=== PATIENT | male | born 1970 | race Caucasian/White ===

== ENCOUNTER 2019-09-11 15:30 | Inpatient (IN) ==
[2019-09-11] MEDS ORDERED: SODIUM CHLORIDE 0.9% 1000ML 1,000 ML IV ONE ×2 (15:52→17:09)
[2019-09-11] MEDS ORDERED: LORazepam 2 MG/4 ML VIAL IV STA (15:57)
--- NOTE | 2019-09-11 16:08 | Emergency Department Note ---
Impression & Plan SIRS (systemic inflammatory response syndrome), Tachycardia, Hypertension, Acidosis, lactic, Alcohol intoxication ED Provider Note NAME: CHAZ CURTIS AGE: 49 SEX: M ARRIVES VIA: Walk-In INFORMANT: [Patient] ED PROVIDER(S): Robert Vazquez MD CHIEF COMPLAINT: Fever PLAN: Disposition: Admitted Condition: [Good] MEDICAL DECISION MAKING: Patient presented with concerns for fever and abnormal vital signs from rehab. He had essentially no complaints. He did admit to drinking alcohol today. He does have history of detox. No obvious contacts with any known novel coronavirus patients although the patient does work in the [place] area and there is a significant number of active cases there. A rapid monreal test was performed and this was negative. Chest x-ray was unremarkable. The patient did have a mild leukocytosis on CBC. He also had a significant lactic acidosis. The patient was hypertensive and very tachycardic. He was given IV normal saline boluses as well as IV Ativan. He was feeling well on reassessment. Repeat lactate was improving although was still elevated. Because of the lab findings the patient had blood cultures performed and was given IV cefepime empirically. I discussed the need for monitoring and further testing in the hospital. The patient was in agreement. [facility] Patient was evaluated in the ER and admitted for further management. Triage Nursing notes reviewed and agree them. Vital Signs: reviewed and remarkable for hypertension and tachycardia Differential diagnosis: Viral syndrome, alcohol withdrawal, novel coronavirus, otitis, pharyngitis, pneumonia, influenza, meningitis, urinary tract infection, sepsis, bacteremia, as well as other pathologies. ER treatment provided: Saline hydration x2 L IV Ativan 2 mg IV cefepime Diagnostics interpreted by me: ECG: Rate: 117 Rhythm: Sinus tachycardia [place]:Normal QRS:Normal ST segements:No elevation or depression Other:No PACs or PVCs Cardiac Monitoring: Cardiac monitoring ordered by me: The patient was placed on continuous cardiac monitoring and observed. It revealed a sinus tachycardia at 129 beats per minute without ectopy or evidence of dysrhythmia. Laboratory studies: [See below] mild leukocytosis on CBC. Chemistry panel revealed an elevated anion gap and significant lactic acidosis. Significant elevation of blood alcohol level. Imaging studies: Chest x-ray. Findings: A chest x-ray was performed and revealed no pneumothorax, effusion, infiltrate, pulmonary edema, free air under the diaphragm, or wide mediastinum. Impression: No acute disease. [facility] HPI: The patient is a 49 year old male who presents to the Emergency Room with complaints of fever. This started a few hours ago and is now resolved. The pat stephanie was checking into alcohol rehab at [facility] and he states his initial temperature was normal and then a recheck was done. He was found to have an elevated heart rate, high blood pressure, and a fever of 100.2. The patient is from the [facility]. He has no known contact with a novel coronavirus patient. He feels well without any nasal congestion cough, loss of taste or smell, shortness of breath, or other complaints. He took no medication for symptoms. He states his last drink was vodka about 6 hours ago. He normally drinks every evening. He has had withdrawal issues before but typically after 2 days. Patient was given no medication prior to ER arrival. Current pain is rated as 0 out of 10. Pt denies LOC, headache, chills, diaphoresis, visual changes, neck pain, chest pain, breathing difficulties, nausea, vomiting, abdominal pain, back pain, melena, hematochezia, urinary symptoms, numbness, weakness, lymphadenopathy, rash, or other complaints. ROS: See above HPI for pertinent positives & negatives. A total of [10] systems reviewed and were otherwise negative. PAST MEDICAL HISTORY:[See Below] alcohol abuse PAST SURGICAL HISTORY:[See Below] FAMILY HISTORY:[See Below] SOCIAL HISTORY:[See Below] drinks daily. HOME MEDICATIONS:[See Below] ALLERGIES:[See Below] VITALS:[See Below] PHYSICAL EXAMINATION: GENERAL: Awake, alert, well-appearing, in no distress HENT: Normocephalic, atraumatic. Oropharynx unremarkable. EYES: Normal conjunctiva. Sclera non-icteric. NECK: Inspection normal. Non-tender. Supple. No nuchal rigidity. FROM. No masses. RESPIRATORY: Clear to auscultation. No wheezes. No rales. Normal respiratory effort. CARDIAC: Tachycardic rate. Normal rhythm. No murmurs. No rubs. Extremities war m and well perfused. Pulses equal. No JVD. GI: Soft, non-distended. No tenderness to palpation. No rebound or guarding. No masses. RECTAL: Deferred. MUSCULOSKELETAL: Atraumatic. Chest examination reveals no tenderness. The back is symmetrical on inspection without obvious abnormality. There is no CVA tenderness to palpation. No joint edema. LOWER EXTREMITIES: Calves are equal size bilaterally and non-tender. No edema. No discoloration. NEURO: Normal sensorium. No sensory or motor deficits noted. SKIN: No rash or jaundice noted. ED COURSE: [Critical Care:] [None] Robert Vazquez MD Past Med/Surg History Social History Feels Safe at Home: Yes Smoking Status: Current every day smoker Allergies Allergies Allergy/AdvReac Type Severity Reaction Status Date / Time No Known Allergies Allergy Verified 09/11/19 16:51 Home Meds Home Medications Medication Instructions Recorded Confirmed aspirin 81 mg PO DAILY 09/11/19 09/11/19 atorvastatin 20 mg PO HS 09/11/19 09/11/19 carvedilol [Coreg] 12.5 mg PO BID 09/11/19 09/11/19 cyanocobalamin (vitamin B-12) 1,000 mcg PO DAILY 09/11/19 09/11/19 [Vitamin B-12] sacubitril-valsartan [Entresto] 1 tab PO BID 09/11/19 09/11/19 spironolactone 12.5 mg PO QAM 09/11/19 09/11/19 Results & Data (ED) Vital Signs Vital Signs - 24 hr 09/11/19 15:31 09/11/19 15:46 09/11/19 16:22 Temperature 36.7 C 37.3 C Temperature Source Oral Oral Pulse Rate 152 H Pulse Rate [Apical] 119 H Pulse Rate [Finger] 130 H Pulse Rate from SpO2 Sensor Pulse Rhythm [Finger] Pulse Strength [Finger] Respiratory Rate 18 20 21 Respiratory Effort / Characteristics Non-Labored Spontaneous Respiratory Depth Normal Respiratory Pattern Blood Pressure 161/91 H Blood Pressure [Right Arm] 162/101 H 141/89 H Blood Pressure Mean 114 Blood Pressure Mean [Right Arm] 121 106 Blood Pressure Position Sitting Pulse Oximetry 98 97 96 Oxygen Delivery Method Room Air Room Air Room Air Sepsis Recent Fever Within 48 Hours No Sepsis New/Unexplained Change in Mental Status No Sepsis Action Taken by Nursing No Action Required 09/11/19 16:30 09/11/19 16:31 09/11/19 18:05 Temperature Temperature Source Pulse Rate 134 H 123 H Pulse Rate [Apical] Pulse Rate [Finger] 111 H Pulse Rate from SpO2 Sensor 133 H 124 H Pulse Rhythm [Finger] Pulse Strength [Finger] Respiratory Rate 18 18 20 Respiratory Effort / Characteristics Non-Labored Respiratory Depth Normal Respiratory Pattern Regular Blood Pressure 142/106 H Blood Pressure [Right Arm] 157/96 H Blood Pressure Mean 116 Blood Pressure Mean [Right Arm] 116 Blood Pressure Position Pulse Oximetry 98 97 97 Oxygen Delivery Method Room Air Room Air Room Air Sepsis Recent Fever Within 48 Hours Sepsis New/Unexplained Change in Mental Status Sepsis Action Taken by Nursing 09/11/19 19:14 Temperature Temperature Source Pulse Rate Pulse Rate [Apical] Pulse Rate [Finger] 99 H Pulse Rate from SpO2 Sensor Pulse Rhythm [Finger] Regular Pulse Strength [Finger] Normal Respiratory Rate 18 Respiratory Effort / Characteristics Respiratory Depth Respiratory Pattern Blood Pressure Blood Pressure [Right Arm] 153/94 H Blood Pressure Mean Blood Pressure Mean [Right Arm] 113 Blood Pressure Position Pulse Oximetry 96 Oxygen Delivery Method Room Air Sepsis Recent Fever Within 48 Hours Sepsis New/Unexplained Change in Mental Status Sepsis Action Taken by Nursing Laboratory Data Result diagrams: 09/11/19 16:14 09/11/19 16:14 Lab Results 09/11/19 09/11/19 09/11/19 Range/Units 16:14 16:14 16:14 WBC 11.19 H (4.8-10.8) K/uL RBC 4.50 L (4.7-6.1) M/uL Hgb 15.2 (14.0-18.0) g/dL Hct 42.8 (42-52) % MCV 95.1 (80-100) fL MCH 33.8 (25-34) pg MCHC 35.5 (32-36) g/dL RDW Std Deviation 44.1 (36.4-46.3) fL RDW Coeff of Darya 12.8 (11.5-14.5) % Plt Count 325 (130-400) K/uL MPV 9.4 (7.4-10.4) fL Immature Gran % (Auto) 0.6 % Neut % (Auto) 65.0 % Lymph % (Auto) 27.3 % [place] % (Auto) 6.3 % Eos % (Auto) 0.4 % Baso % (Auto) 0.4 % Immature Gran # (Auto) 0.07 H (0.00-0.02) K/uL Neut # (Auto) 7.27 H (1.4-6.5) K/uL Lymph # (Auto) 3.06 (1.2-3.4) K/uL [place] # (Auto) 0.71 H (0.11-0.59) K/uL Eos # (Auto) 0.04 (0-0.5) K/uL Baso # (Auto) 0.04 (0-0.2) K/uL Sodium 136 (136-145) mmol/L Potassium 3.6 (3.5-5.1) mmol/L Chloride 102 (98-107) mmol/L Carbon Dioxide 22 (21-32) mmol/L Anion Gap 12.0 H (3-11) BUN 11 (7-18) mg/dl Creatinine 1.06 (0.6-1.4) mg/dl Est Cr Clr Drug Dosing 102.0 ml/min Est GFR ( Amer) 95.7 Est GFR (Non-Af Amer) 82.6 BUN/Creatinine Ratio 10.7 (10-20) Glucose 110 H (70-99) mg/dl Lactate 4.1 H* (0.4-2.0) mmol/L Calcium 8.9 (8.5-10.1) mg/dl Magnesium 1.9 (1.8-2.4) mg/dl Total Bilirubin 0.4 (0.2-1) mg/dl AST 62 H (15-37) U/L ALT 73 (12-78) U/L Alkaline Phosphatase 108 (45-117) U/L Total Protein 7.8 (6.4-8.2) gm/dl Albumin 3.5 (3.4-5.0) gm/dl Globulin 4.3 H (2.5-4.0) gm/dl Albumin/Globulin Ratio 0.8 L (0.9-2) Urine Color Urine Appearance (Clear) Urine pH (4.5-7.5) Ur Specific [place] (1.000-1.030) Urine Protein (Negative) Urine Glucose (UA) (Negative) Urine Ketones (Negative) Urine Blood (Negative) Urine Nitrite (Negative) Urine Bilirubin (Negative) Urine Urobilinogen (Negative) Ur Leukocyte Esterase (Negative) Urine WBC (Auto) (0-5) /hpf Urine RBC (Auto) (0-4) /hpf U Hyaline Cast (Auto) (0-5) /lpf U Epithel Cells (Auto) (0-5) /lpf Urine Bacteria (Auto) (Negative) Ethyl Alcohol mg/dL (0-3) mg/dl COVID-19 PCR (Negative) 09/11/19 09/11/19 09/11/19 Range/Units 16:14 16:29 18:00 WBC (4.8-10.8) K/uL RBC (4.7-6.1) M/uL Hgb (14.0-18.0) g/dL Hct (42-52) % MCV (80-100) fL MCH (25-34) pg MCHC (32-36) g/dL RDW Std Deviation (36.4-46.3) fL RDW Coeff of Darya (11.5-14.5) % Plt Count (130-400) K/uL MPV (7.4-10.4) fL Immature Gran % (Auto) % Neut % (Auto) % Lymph % (Auto) % [place] % (Auto) % Eos % (Auto) % Baso % (Auto) % Immature Gran # (Auto) (0.00-0.02) K/uL Neut # (Auto) (1.4-6.5) K/uL Lymph # (Auto) (1.2-3.4) K/uL [place] # (Auto) (0.11-0.59) K/uL Eos # (Auto) (0-0.5) K/uL Baso # (Auto) (0-0.2) K/uL Sodium (136-145) mmol/L Potassium (3.5-5.1) mmol/L Chloride (98-107) mmol/L Carbon Dioxide (21-32) mmol/L Anion Gap (3-11) BUN (7-18) mg/dl Creatinine (0.6-1.4) mg/dl Est Cr Clr Drug Dosing ml/min Est GFR ( Amer) Est GFR (Non-Af Amer) BUN/Creatinine Ratio (10-20) Glucose (70-99) mg/dl Lactate (0.4-2.0) mmol/L Calcium (8.5-10.1) mg/dl Magnesium (1.8-2.4) mg/dl Total Bilirubin (0.2-1) mg/dl AST (15-37) U/L ALT (12-78) U/L Alkaline Phosphatase (45-117) U/L Total Protein (6.4-8.2) gm/dl Albumin (3.4-5.0) gm/dl Globulin (2.5-4.0) gm/dl Albumin/Globulin Ratio (0.9-2) Urine Color Yellow Urine Appearance Clear (Clear) Urine pH 5.5 (4.5-7.5) Ur Specific [place] 1.014 (1.000-1.030) Urine Protein Negative (Negative) Urine Glucose (UA) Negative (Negative) Urine Ketones Negative (Negative) Urine Blood Trace H (Negative) Urine Nitrite Negative (Negative) Urine Bilirubin Negative (Negative) Urine Urobilinogen Negative (Negative) Ur Leukocyte Esterase Negative (Negative) Urine WBC (Auto) 1-5 (0-5) /hpf Urine RBC (Auto) 0-4 (0-4) /hpf U Hyaline Cast (Auto) 0 (0-5) /lpf U Epithel Cells (Auto) 0-5 (0-5) /lpf Urine Bacteria (Auto) Negative (Negative) Ethyl Alcohol mg/dL 277.4 H (0-3) mg/dl COVID-19 PCR NEGATIVE (Negative) 09/11/19 Range/Units 18:23 WBC (4.8-10.8) K/uL RBC (4.7-6.1) M/uL Hgb (14.0-18.0) g/dL Hct (42-52) % MCV (80-100) fL MCH (25-34) pg MCHC (32-36) g/dL RDW Std Deviation (36.4-46.3) fL RDW Coeff of Darya (11.5-14.5) % Plt Count (130-400) K/uL MPV (7.4-10.4) fL Immature Gran % (Auto) % Neut % (Auto) % Lymph % (Auto) % [place] % (Auto) % Eos % (Auto) % Baso % (Auto) % Immature Gran # (Auto) (0.00-0.02) K/uL Neut # (Auto) (1.4-6.5) K/uL Lymph # (Auto) (1.2-3.4) K/uL [place] # (Auto) (0.11-0.59) K/uL Eos # (Auto) (0-0.5) K/uL Baso # (Auto) (0-0.2) K/uL Sodium (136-145) mmol/L Potassium (3.5-5.1) mmol/L Chloride (98-107) mmol/L Carbon Dioxide (21-32) mmol/L Anion Gap (3-11) BUN (7-18) mg/dl Creatinine (0.6-1.4) mg/dl Est Cr Clr Drug Dosing ml/min Est GFR ( Amer) Est GFR (Non-Af Amer) BUN/Creatinine Ratio (10-20) Glucose (70-99) mg/dl Lactate 3.6 H* (0.4-2.0) mmol/L Calcium (8.5-10.1) mg/dl Magnesium (1.8-2.4) mg/dl Total Bilirubin (0.2-1) mg/dl AST (15-37) U/L ALT (12-78) U/L Alkaline Phosphatase (45-117) U/L Total Protein (6.4-8.2) gm/dl Albumin (3.4-5.0) gm/dl Globulin (2.5-4.0) gm/dl Albumin/Globulin Ratio (0.9-2) Urine Color Urine Appearance (Clear) Urine pH (4.5-7.5) Ur Specific [place] (1.000-1.030) Urine Protein (Negative) Urine Glucose (UA) (Negative) Urine Ketones (Negative) Urine Blood (Negative) Urine Nitrite (Negative) Urine Bilirubin (Negative) Urine Urobilinogen (Negative) Ur Leukocyte Esterase (Negative) Urine WBC (Auto) (0-5) /hpf Urine RBC (Auto) (0-4) /hpf U Hyaline Cast (Auto) (0-5) /lpf U Epithel Cells (Auto) (0-5) /lpf Urine Bacteria (Auto) (Negative) Ethyl Alcohol mg/dL (0-3) mg/dl COVID-19 PCR (Negative) Administered Medications Discontinued Medications Carvedilol (Coreg) 6.25 mg PO NOW STA Stop: 09/11/19 19:32 Last Admin: 09/11/19 19:39 Dose: 6.25 mg Documented by: [id number] Sodium Chloride (Nss 1000ml) 1,000 mls @ 999 mls/hr IV .Q1H1M ONE Stop: 09/11/19 16:52 Last Infusion: 09/11/19 17:18 Dose: 0 mls/hr Documented by: [id number] Admin: 09/11/19 16:17 Dose: 999 mls/hr Documented by: [id number] Lorazepam (Ativan) 2 mg in 4 mls @ 4 mls/min IV NOW STA Stop: 09/11/19 15:58 Last Admin: 09/11/19 16:17 Dose: 4 mls/min Documented by: [id number] Sodium Chloride (Nss 1000ml) 1,000 mls @ 999 mls/hr IV .Q1H1M ONE Stop: 09/11/19 18:09 Last Infusion: 09/11/19 19:04 Dose: 0 mls/hr Documented by: [id number] Admin: 09/11/19 18:03 Dose: 999 mls/hr Documented by: [id number] Cefepime HCl (Maxipime) 2,000 mg in 20 mls @ 5 mls/min IV NOW STA; Protocol Stop: 09/11/19 18:26 Last Admin: 09/11/19 19:11 Dose: 5 mls/min Documented by: [id number] Discharge Plan Visit Data Chief Complaint: Fever Stated Complaint: FEVER ED Provider: Robert Vazquez Discharge Problem: SIRS (systemic inflammatory response syndrome), Tachycardia, Hypertension, Acidosis, lactic, Alcohol intoxication Forms Stand Alone Forms: My [facility] Prescriptions Prescriptions: No Action atorvastatin 20 mg Tablet 20 mg PO HS RF: 0 carvedilol [Coreg] 12.5 mg Tablet 12.5 mg PO BID RF: 0 cyanocobalamin (vitamin B-12) [Vitamin B-12] 1,000 mcg Tablet 1,000 mcg PO DAILY RF: 0 aspirin 81 mg Tablet,Delayed Release (Dr/Ec) 81 mg PO DAILY RF: 0 spironolactone 25 mg Tablet 12.5 mg PO QAM RF: 0 Entresto 24-26 mg Tablet 1 tab PO BID RF: 0
[2019-09-11 16:26] LABS: Basophils # (auto) 0.04 K/uL (0-0.2); Basophils % (auto) 0.4 %; Eosinophils # (auto) 0.04 K/uL (0-0.5); Eosinophils % (auto) 0.4 %; Hematocrit (blood only) 42.8 % (42-52); Hemoglobin 15.2 g/dL (14.0-18.0); Immature Granulocytes # (auto) 0.07 K/uL (0.00-0.02); Immature Granulocytes % (auto) 0.6 %; Lymphocytes # (auto) 3.06 K/uL (1.2-3.4); Lymphocytes % (auto) 27.3 %; Mean Corpuscular Hemoglobin 33.8 pg (25-34); Mean Corpuscular Hgb Conc 35.5 g/dL (32-36); Mean Corpuscular Volume 95.1 fL (80-100); Mean Platelet Volume 9.4 fL (7.4-10.4); Monocytes # (auto) 0.71 K/uL (0.11-0.59); Monocytes % (auto) 6.3 %; Neutrophils # (auto) 7.27 K/uL (1.4-6.5); Platelet Count 325 K/uL (130-400); RDW Coefficient of Variation 12.8 % (11.5-14.5); RDW Standard Deviation 44.1 fL (36.4-46.3); White Blood Count 11.19 K/uL (4.8-10.8)
[2019-09-11 16:44] LABS: Albumin Level 3.5 gm/dl (3.4-5.0); BUN Creatinine Ratio 10.7 (10-20); Calcium 8.9 mg/dl (8.5-10.1); Est GFR (African American) 95.7; Est GFR (Non-African American) 82.6; Magnesium 1.9 mg/dl (1.8-2.4); Potassium 3.6 mmol/L (3.5-5.1)
[2019-09-11 16:47] LABS: Albumin Globulin Ratio 0.8 (0.9-2); Bilirubin,Total 0.4 mg/dl (0.2-1); Globulin 4.3 gm/dl (2.5-4.0); Total Protein 7.8 gm/dl (6.4-8.2)
--- NOTE | 2019-09-11 18:14 | XRay Report ---
SINGLE VIEW CHEST CLINICAL HISTORY: Fever. FINDINGS: An AP, portable, upright chest radiograph is obtained. No prior studies are available for c omparison at the time of dictation. The examination is degraded by portable technique and patient rot ation. The cardiomediastinal silhouette is unremarkable. There is mild bibasilar atelectasis. No air space consolidation or large pleural effusion is identified. No pneumothorax is seen. The bony thorax is grossly intact. IMPRESSION: No active disease in the chest. ACT 112: Negative or not required by law. Electronically signed by: Arthur Singh M.D. 09/11/2019 6:13 PM
[2019-09-11] MEDS ORDERED: CEFEPIME 2,000 MG/20 ML VIAL IV STA (18:23)
[2019-09-11 18:29] LABS: Appearance Urine Clear (Clear); Bacteria Urine Automated Negative (Negative); Bilirubin Urine Negative (Negative); Blood Urine Trace (Negative); Cast Urine Automated 0 /lpf (0-5); Color Urine Yellow; Epithelial Cell Urine Auto 0-5 /lpf (0-5); Glucose Urine UA Negative (Negative); Ketones Urine Negative (Negative); Leukocyte Esterase Urine Negative (Negative); Nitrite Urine Negative (Negative); Protein Urine Negative (Negative); RBC Urine Automated 0-4 /hpf (0-4); Specific Gravity Urine 1.014 (1.000-1.030); Urobilinogen Urine Negative (Negative); pH Urine 5.5 (4.5-7.5)
[2019-09-11] MEDS ORDERED: carvediloL 6.25 MG TAB PO STA (19:31)
[2019-09-11] MEDS ORDERED: LACTATED RINGER'S 1,000 ML IV ONE (19:32)
[2019-09-11] MEDS ORDERED: GABAPENTIN 600 MG TAB PO STA (19:33)
--- NOTE | 2019-09-11 19:54 | History & Physical Report ---
Date of Service September 11, 2019 Assessment & Plan (1) Alcohol withdrawal: Low-grade fever possibly from alcohol withdrawal No overt source of bacterial infection identified for now. chronic systolic heart failure secondary to nonischemic cardiomyopathy (EF 47%, TTE 2019 as per patient), euvolemic to dry hypertension, slight elevated hyperlipidemia on statin Rx Alcoholic hepatitis ongoing tobacco abuse. Medical telemetry DT precautions Hold antibiotics until definite bacteria; source found. IVF, follow lactic acid Facilitate home beta-jose Nicotine patch PRN DVT prophylaxis per Lovenox subcu Full code Text document was generated using [employer] voice recognition software. It may contain grammatical or spelling errors. Kindly contact undersigned for clarification of any documentation item in question. History of Present Illness Chief Complaint: Fever, tachycardia as per records Primary Care Provider: Linden Peter PA-C History obtained from patient and records. Medical history significant for chronic systolic heart failure secondary to nonischemic cardiomyopathy (EF 47%, TTE 2019 as per patient), hypertension, hyperlipidemia, ongoing alcohol/tobacco abuse. Patient checked himself in today at [facility] for alcohol rehab. Upon arrival at the facility, patient noted to have low-grade fever of 100.2, noted to be tachycardic, cardiac rate 140s. Patient denies chest pain, S OB, cough, abdominal pain, diarrhea, dysuria. Some palpitations noted. At the ER, patient given Cefepime for possible sepsis. Medical History as above Surgical History : None Family History : Unknown as patient is adopted Personal/Social history : Half pack daily, alcohol abuse, railroad work Allergies Allergy/AdvReac Type Severity Reaction Status Date / Time No Known Allergies Allergy Verified 09/11/19 16:51 Home Medications Home Medications Medication Instructions Recorded Confirmed Type aspirin 81 mg PO DAILY 09/11/19 09/11/19 History atorvastatin 20 mg PO HS 09/11/19 09/11/19 History carvedilol [Coreg] 12.5 mg PO BID 09/11/19 09/11/19 History cyanocobalamin (vitamin B-12) 1,000 mcg PO DAILY 09/11/19 09/11/19 History [Vitamin B-12] sacubitril-valsartan [Entresto] 1 tab PO BID 09/11/19 09/11/19 History spironolactone 12.5 mg PO QAM 09/11/19 09/11/19 History Past Med/Surg History Social History Preferred Language: Turkish Communication Ability: Effective 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 Beliefs That Will Affect Care: None Current Living Situation: Alone Feels Safe at Home: Yes Smoking Status: Current every day smoker Tobacco Type: cigarettes ; Cigarettes Per Day: 1 pack ; Hx Alcohol Use: Yes Alcohol type: hard liquor Hx Substance Use: No Review of Systems Review of Systems: As per HPI, all 10 systems reviewed, all other ROS negative Physical Exam Physical Exam: GENERAL: Comfortable, pleasant, obese, no respiratory distress SKIN: Normal color, warm HEENT: [place] palpebral conjunctivae, no ptosis, dry buccal mucosa NECK : Supple, short neck, no tenderness CHEST : Decreased breath sounds, expiratory wheezes that clear on coughing, no tenderness HEART : Tachycardic, no obvious murmurs ABDOMEN: Some distention, nontender EXTREMITIES : No LE swelling/tenderness, no other conspicuous deformities noted NEUROLOGIC : Coherent, no facial asymmetry, no other gross focality Results & Data Results & Data ([facility]) Vital Signs (Past 12 Hours) Vital Signs Temp Pulse Pulse Pulse Resp BP BP 09/11/19 19:14 99 H 18 153/94 H 09/11/19 18:05 111 H 20 157/96 H 09/11/19 16:31 123 H 18 09/11/19 16:30 134 H 18 142/106 H 09/11/19 16:22 119 H 21 141/89 H 09/11/19 15:46 37.3 C 130 H 20 162/101 H 09/11/19 15:31 36.7 C 152 H 18 161/91 H Pulse Ox 09/11/19 19:14 96 09/11/19 18:05 97 09/11/19 16:31 97 09/11/19 16:30 98 09/11/19 16:22 96 09/11/19 15:46 97 09/11/19 15:31 98 Laboratory Results Laboratory Results WBC 11.19 K/uL (4.8-10.8) H 09/11/19 16:14 RBC 4.50 M/uL (4.7-6.1) L 09/11/19 16:14 Hgb 15.2 g/dL (14.0-18.0) 09/11/19 16:14 Hct 42.8 % (42-52) 09/11/19 16:14 MCV 95.1 fL (80-100) 09/11/19 16:14 MCH 33.8 pg (25-34) 09/11/19 16:14 MCHC 35.5 g/dL (32-36) 09/11/19 16:14 RDW Std Deviation 44.1 fL (36.4-46.3) 09/11/19 16:14 RDW Coeff of Darya 12.8 % (11.5-14.5) 09/11/19 16:14 Plt Count 325 K/uL (130-400) 09/11/19 16:14 MPV 9.4 fL (7.4-10.4) 09/11/19 16:14 Immature Gran % (Auto) 0.6 % 09/11/19 16:14 Neut % (Auto) 65.0 % 09/11/19 16:14 Lymph % (Auto) 27.3 % 09/11/19 16:14 [place] % (Auto) 6.3 % 09/11/19 16:14 Eos % (Auto) 0.4 % 09/11/19 16:14 Baso % (Auto) 0.4 % 09/11/19 16:14 Immature Gran # (Auto) 0.07 K/uL (0.00-0.02) H 09/11/19 16:14 Neut # (Auto) 7.27 K/uL (1.4-6.5) H 09/11/19 16:14 Lymph # (Auto) 3.06 K/uL (1.2-3.4) 09/11/19 16:14 [place] # (Auto) 0.71 K/uL (0.11-0.59) H 09/11/19 16:14 Eos # (Auto) 0.04 K/uL (0-0.5) 09/11/19 16:14 Baso # (Auto) 0.04 K/uL (0-0.2) 09/11/19 16:14 Sodium 136 mmol/L (136-145) 09/11/19 16:14 Potassium 3.6 mmol/L (3.5-5.1) 09/11/19 16:14 Chloride 102 mmol/L (98-107) 09/11/19 16:14 Carbon Dioxide 22 mmol/L (21-32) 09/11/19 16:14 Anion Gap 12.0 (3-11) H 09/11/19 16:14 BUN 11 mg/dl (7-18) 09/11/19 16:14 Creatinine 1.06 mg/dl (0.6-1.4) 09/11/19 16:14 Est Cr Clr Drug Dosing 102.0 ml/min 09/11/19 16:14 Est GFR ( Amer) 95.7 09/11/19 16:14 Est GFR (Non-Af Amer) 82.6 09/11/19 16:14 BUN/Creatinine Ratio 10.7 (10-20) 09/11/19 16:14 Glucose 110 mg/dl (70-99) H 09/11/19 16:14 Lactate 3.6 mmol/L (0.4-2.0) H* 09/11/19 18:23 Calcium 8.9 mg/dl (8.5-10.1) 09/11/19 16:14 Magnesium 1.9 mg/dl (1.8-2.4) 09/11/19 16:14 Total Bilirubin 0.4 mg/dl (0.2-1) 09/11/19 16:14 AST 62 U/L (15-37) H 09/11/19 16:14 ALT 73 U/L (12-78) 09/11/19 16:14 Alkaline Phosphatase 108 U/L (45-117) 09/11/19 16:14 Total Protein 7.8 gm/dl (6.4-8.2) 09/11/19 16:14 Albumin 3.5 gm/dl (3.4-5.0) 09/11/19 16:14 Globulin 4.3 gm/dl (2.5-4.0) H 09/11/19 16:14 Albumin/Globulin Ratio 0.8 (0.9-2) L 09/11/19 16:14 Urine Color Yellow 09/11/19 18:00 Urine Appearance Clear (Clear) 09/11/19 18:00 Urine pH 5.5 (4.5-7.5) 09/11/19 18:00 Ur Specific [place] 1.014 (1.000-1.030) 09/11/19 18:00 Urine Protein Negative (Negative) 09/11/19 18:00 Urine Glucose (UA) Negative (Negative) 09/11/19 18:00 Urine Ketones Negative (Negative) 09/11/19 18:00 Urine Blood Trace (Negative) H 09/11/19 18:00 Urine Nitrite Negative (Negative) 09/11/19 18:00 Urine Bilirubin Negative (Negative) 09/11/19 18:00 Urine Urobilinogen Negative (Negative) 09/11/19 18:00 Ur Leukocyte Esterase Negative (Negative) 09/11/19 18:00 Urine WBC (Auto) 1-5 /hpf (0-5) 09/11/19 18:00 Urine RBC (Auto) 0-4 /hpf (0-4) 09/11/19 18:00 U Hyaline Cast (Auto) 0 /lpf (0-5) 09/11/19 18:00 U Epithel Cells (Auto) 0-5 /lpf (0-5) 09/11/19 18:00 Urine Bacteria (Auto) Negative (Negative) 09/11/19 18:00 Ethyl Alcohol mg/dL 277.4 mg/dl (0-3) H 09/11/19 16:14 COVID-19 PCR NEGATIVE (Negative) 09/11/19 16:29 Diagnostic Findings Chest x-ray : No active disease in the chest. EKG as per my interpretation : Rate 120, sinus tachycardia, normal axis, no ischemia, LAE
[2019-09-11] MEDS ORDERED: ACETAMINOPHEN 325 MG TAB PO PRN (23:12)
[2019-09-11] MEDS ORDERED: LORazepam 3 MG/6 ML VIAL IV PRN (23:12)
[2019-09-11] MEDS ORDERED: ATIVAN IV ALCOHOL WITHDRAWL IV PRN (23:12)
[2019-09-11] MEDS ORDERED: GABAPENTIN 1200MG ALCOHOL WITHDRAWAL LOAD PO STA (23:12)
[2019-09-11] MEDS ORDERED: LORazepam 0.5 MG TAB PO PRN (23:12)
[2019-09-11] MEDS ORDERED: PROMETHAZINE HCL 12.5 MG in SODIUM CHLORIDE 0.9% 50 ML IV PRN (23:12)
[2019-09-11] MEDS ORDERED: LORazepam 2 MG/4 ML VIAL IV PRN (23:12)
[2019-09-11 23:27] LABS: INR 1.1 (0.9-1.1); Prothrombin Time 11.4 Seconds (9.0-12.0)
[2019-09-11] MEDS ORDERED: THIAMINE HCL 100 MG in SYRINGE 9 ML IV STA (23:27)
[2019-09-11] MEDS ORDERED: MAGNESIUM SULFATE / D5W 1 GM/100 ML BAG IV ONE (23:30)
[2019-09-12] MEDS: GABAPENTIN 600 MG TAB PO SCH ×4 (01:02→23:16)
[2019-09-12 05:45] LABS: Basophils # (auto) 0.03 K/uL (0-0.2); Basophils % (auto) 0.3 %; Eosinophils # (auto) 0.08 K/uL (0-0.5); Eosinophils % (auto) 0.8 %; Hematocrit (blood only) 38.6 % (42-52); Hemoglobin 13.4 g/dL (14.0-18.0); Immature Granulocytes # (auto) 0.02 K/uL (0.00-0.02); Immature Granulocytes % (auto) 0.2 %; Lymphocytes # (auto) 2.06 K/uL (1.2-3.4); Lymphocytes % (auto) 21.7 %; Mean Corpuscular Hgb Conc 34.7 g/dL (32-36); Mean Corpuscular Volume 95.1 fL (80-100); Mean Platelet Volume 9.4 fL (7.4-10.4); Monocytes % (auto) 11.6 %; Neutrophils % (auto) 65.4 %; Platelet Count 237 K/uL (130-400); RDW Coefficient of Variation 12.9 % (11.5-14.5); RDW Standard Deviation 44.3 fL (36.4-46.3); Red Blood Count 4.06 M/uL (4.7-6.1); White Blood Count 9.49 K/uL (4.8-10.8)
[2019-09-12 06:11] LABS: BUN Creatinine Ratio 11.2 (10-20); Calcium 7.3 mg/dl (8.5-10.1); Creatinine Clr Calc Pharmacy 142.2 ml/min; Est GFR (Non-African American) 107.9; Potassium 3.9 mmol/L (3.5-5.1)
[2019-09-12] MEDS: LORazepam 1 MG/2 ML VIAL IV PRN ×2 (08:18→20:34)
[2019-09-12] MEDS: carvediloL 12.5 MG TAB PO SCH ×2 (08:20→20:16)
[2019-09-12] MEDS: ASPIRIN 81 MG ECTAB PO SCH (08:20)
[2019-09-12] MEDS: FOLIC ACID 1 MG TAB PO SCH (08:21)
[2019-09-12] MEDS: MULTIVITAMIN TAB PO SCH (08:21)
[2019-09-12] MEDS: ENOXAPARIN INJ 40 MG/0.4 ML SYR SQ SCH (08:21)
[2019-09-12] MEDS: CYANOCOBALAMIN 500 MCG TABLET (VITAMIN B-12) PO SCH (08:22)
[2019-09-12] MEDS: THIAMINE HCL 100 MG TAB PO SCH (08:22)
[2019-09-12] MEDS ORDERED: LACTATED RINGER'S 1,000 ML IV SCH (09:00)
[2019-09-12] MEDS: SACUBITRIL-VALSARTAN 24-26 MG TAB PO SCH ×3 (09:16→20:16)
[2019-09-12] MEDS ORDERED: VANCOMYCIN CONSULT ACTIVE PRN (13:13)
[2019-09-12] MEDS ORDERED: CEFEPIME CONSULT ACTIVE PRN (13:13)
[2019-09-12] MEDS ORDERED: VANCOMYCIN HCL 2,500 MG in SODIUM CHLORIDE 0.9% 500 ML IV SCH (13:45)
[2019-09-12] MEDS ORDERED: CEFEPIME 2,000 MG in SYRINGE 7.5 ML IV SCH (14:00)
--- NOTE | 2019-09-12 14:01 | Pharmacy Report ---
Pharmacy Abx Initial Consult - Date of Service September 12, 2019 - Pharmacy Dosing Scope Date of Consult: 09/12/2019 Consultation requested by: Dr. Duvall Pharmacy is consulted to initiate cefepime and vancomycin IV dosing therapy, order appropriate labs and adjust drug dose/frequency. - Subjective The patient is a 49 year old M admitted on 09/11/19 20:01 with fever and tachycardia from [facility]. Unknown source of infection at that time. Currently with one of two blood cultures positive for GP cocci in clusters. - Objective Height: 5 ft 11 in Weight: 98.5 kg Vital Signs (Past 12hrs): Vital Signs Temp Pulse Pulse Pulse Resp BP Pulse Ox 09/12/19 11:23 37 C 83 18 146/100 H 96 09/12/19 10:03 36.8 C 88 20 154/90 H 96 09/12/19 08:10 85 09/12/19 07:57 36.9 C 80 20 166/97 H 94 Lab Results (24hrs): Laboratory Tests (24 Hours) 09/12/19 09/12/19 09/11/19 05:33 05:33 16:15 WBC 9.49 Neut # (Auto) 6.20 Creatinine 0.76 D Est Cr Clr Drug Dosing 142.2 Procalcitonin 0.05 09/11/19 09/11/19 16:14 16:14 WBC 11.19 H Neut # (Auto) 7.27 H Creatinine 1.06 Est Cr Clr Drug Dosing 102.0 Procalcitonin Micro Results: 09/12/19 13:19 Aerobic Blood Culture - Pending Blood Anaerobic Blood Culture - Pending 09/12/19 13:29 Aerobic Blood Culture - Pending Blood Anaerobic Blood Culture - Pending 09/11/19 18:23 Aerobic Blood Culture - Pending Blood 09/11/19 18:23 Aerobic Blood Culture - Pending Blood Anaerobic Blood Culture - Pending - Risk Factors for Resistance no risk factors - Assessment & Plan Assessment 49 year old M admitted with fever and tachycardia. Now 1 of 2 BC positive. Plan vancomycin and cefepime for treatment of bacteremia Vancomycin IV * Patient meets criteria for vancomycin AUC dosing nomogram * AUC/IAN is the preferred PK/PD target for vancomycin * Target AUC/IAN = 400-600 * AUC guided dosing is effective and associated with decreased risk of nephrotoxicity Cefepime * cefepime 2 gm IV q12 hours due to no risk factors for Pseudomonas Pharmacy will continue to follow and will adjust dose/frequency as necessary. Thank you.
[2019-09-12] MEDS: ATORVASTATIN 20 MG TAB PO SCH ×2 (20:17)
[2019-09-12] MEDS: VANCOMYCIN HCL 1,750 MG in SODIUM CHLORIDE 0.9% 500 ML IV SCH (23:06)
--- NOTE | 2019-09-12 23:21 | Hospitalist Progress Note ---
Date of Service September 12, 2019 Assessment & Plan (1) Alcohol withdrawal: Low-grade fever possibly from alcohol withdrawal No overt source of bacterial infection identified on admission Now 1 of the blood cultures obtained in emergency room came positive for gram- positive cocci in clusters. STAT blood cultures reordered. Patient received cefepime in the ED. We will now give vancomycin and continue cefepime. Blood cell count within normal limits, also procalcitonin negative. Lactic acid first elevated in the ED, however after IV fluids normalized to 0.9. Possibly from dehydration. There are no abrasions, no wounds, no clear source of infection. UA negative. Chest x-ray negative. Patient otherwise denied any fevers, cough, abdominal pain, diarrhea. Medical telemetry DT precautions Alcohol withdrawal precautions protocol, gabapentin, Ativan as needed Chronic conditions: chronic systolic heart failure secondary to nonischemic cardiomyopathy (EF 47%, TTE 2019 as per patient), euvolemic to dry hypertension, slight elevated on admission, now in goal Facilitate home beta-jose hyperlipidemia on statin Rx Alcoholic hepatitis ongoing tobacco abuse, Nicotine patch PRN DVT prophylaxis per Lovenox subcu Full code Admission and Anticipated Discharge Date Admission Date: September 11, 2019 Subjective Patient is examined in the chair, in no acute distress. He denies any fevers, chills, chest pain, shortness of breath, abdominal pain, nausea or vomiting. He also denies any tremors, hallucinations. One of the blood cultures came positive for gram-positive cocci in clusters, therefore broad-spectrum antibiotics started, will follow blood cultures. Repeat stat blood cultures were also ordered. Patient received cefepime in ED, as there was concern for possible infectious process. Now patient on vancomycin and cefepime. Review of Systems Review of Systems: All systems reviewed & are unremarkable except as noted in HPI & below Constitutional: no fever and no chills Respiratory: no cough and no dyspnea Cardiovascular: no chest pain and no palpitations Gastrointestinal: no abdominal pain, no nausea and no vomiting Neurologic: no tremor(s) Psychiatric: no hallucinations, no visual hallucinations and no tactile hallucinations Physical Exam Physical Exam: GENERAL: Middle-aged obese male, sitting up in the chair, in no acute distress HEENT: Normocephalic, atraumatic, EOMI, PERRL NECK : Supple, short neck, no tenderness CHEST : Normal respiratory effort, CTAB, no wheezing, rhonchi or crackles noted HEART : RRR, no murmurs noted ABDOMEN: Normal bowel sounds, soft, obese, nontender to palpation EXTREMITIES : No LE swelling/tenderness, no sensory loss was noted, moves extremities spontaneously and without difficulty SKIN: Normal color, warm, dry NEURO/PSYCH : Alert and oriented x3, no facial asymmetry, speech fluent, moves extremities spontaneously, answers questions appropriately, euthymic affect Results & Data Results & Data ([facility]) Vital Signs (Past 12 Hours) Vital Signs Temp Pulse Pulse Pulse Resp BP BP 09/12/19 20:21 37.4 C 90 22 151/90 H 09/12/19 19:45 37.3 C 87 18 128/80 09/12/19 17:27 91 H 09/12/19 15:47 36.7 C 85 18 148/87 H 09/12/19 14:02 37.0 C 80 18 141/87 H 09/12/19 11:23 37 C 83 18 146/100 H Pulse Ox 09/12/19 20:21 97 09/12/19 19:45 96 09/12/19 17:27 09/12/19 15:47 97 09/12/19 14:02 97 09/12/19 11:23 96
[2019-09-13] MEDS: CEFEPIME 2,000 MG in SYRINGE 7.5 ML IV SCH ×2 (01:40→14:08)
[2019-09-13] MEDS: VANCOMYCIN HCL 1,750 MG in SODIUM CHLORIDE 0.9% 500 ML IV SCH ×2 (05:32→14:08)
--- NOTE | 2019-09-13 06:43 | Electrocardiogram Report ---
Test Reason : Blood Pressure : / mmHG Vent. Rate : 117 BPM Atrial Rate : 117 BPM P-R Int : 136 ms QRS Dur : 090 ms QT Int : 338 ms P-R-T Axes : 048 005 039 degrees QTc Int : 471 ms Poor data quality, interpretation may be adversely affected Sinus tachycardia Possible Left atrial enlargement Borderline ECG No previous ECGs available Confirmed by Ron Byrne ([id number]) on 09/13/2019 6:43:34 AM Referred By: REFERRED SELF Confirmed By:Ron Byrne
[2019-09-13 07:21] LABS: Hematocrit (blood only) 40.4 % (42-52); Hemoglobin 13.9 g/dL (14.0-18.0); Mean Corpuscular Hemoglobin 33.1 pg (25-34); Mean Corpuscular Hgb Conc 34.4 g/dL (32-36); Mean Corpuscular Volume 96.2 fL (80-100); Mean Platelet Volume 9.8 fL (7.4-10.4); Platelet Count 200 K/uL (130-400); RDW Coefficient of Variation 13.1 % (11.5-14.5); RDW Standard Deviation 44.9 fL (36.4-46.3); White Blood Count 7.86 K/uL (4.8-10.8)
[2019-09-13] MEDS: ENOXAPARIN INJ 40 MG/0.4 ML SYR SQ SCH (07:44)
[2019-09-13] MEDS: carvediloL 12.5 MG TAB PO SCH ×2 (07:44→21:09)
[2019-09-13] MEDS: THIAMINE HCL 100 MG TAB PO SCH (07:46)
[2019-09-13] MEDS: CYANOCOBALAMIN 500 MCG TABLET (VITAMIN B-12) PO SCH (07:46)
[2019-09-13] MEDS: SACUBITRIL-VALSARTAN 24-26 MG TAB PO SCH ×2 (07:46→21:08)
[2019-09-13] MEDS: FOLIC ACID 1 MG TAB PO SCH (07:46)
[2019-09-13] MEDS: GABAPENTIN 600 MG TAB PO SCH ×2 (07:46→21:08)
[2019-09-13] MEDS: ASPIRIN 81 MG ECTAB PO SCH (07:46)
[2019-09-13] MEDS: MULTIVITAMIN TAB PO SCH (07:46)
[2019-09-13 08:02] LABS: BUN Creatinine Ratio 12.1 (10-20); Calcium 7.6 mg/dl (8.5-10.1); Est GFR (African American) 127.1; Est GFR (Non-African American) 109.7; Magnesium 1.8 mg/dl (1.8-2.4); Potassium 3.8 mmol/L (3.5-5.1)
[2019-09-13 08:13] LABS: Phosphorus 1.2 mg/dl (2.5-4.9)
[2019-09-13] MEDS ORDERED: POTASSIUM PHOS 3 MMOL/1 ML INFUSION IV STA (08:23)
[2019-09-13] MEDS ORDERED: POTASSIUM PHOSPHATE 21 MMOL in SODIUM CHLORIDE 0.9% 500 ML IV ONE (08:45)
[2019-09-13] MEDS: SACCHAROMYCES BOULARDII 250 MG CAP PO SCH (09:02)
[2019-09-13] MEDS ORDERED: VANCOMYCIN TROUGH ONE (13:30)
--- NOTE | 2019-09-13 19:51 | Hospitalist Progress Note ---
Date of Service September 13, 2019 Assessment & Plan (1) Alcohol withdrawal: Low-grade fever likely from alcohol withdrawal No recorded fever since patient in hospital No overt source of bacterial infection identified on admission One of the blood cultures obtained in emergency room came positive for gram- positive cocci in clusters - Coag. negative staph (per anil likely contamination) STAT blood cultures reordered and negative, no growth to date. Patient received cefepime in the ED. Gave vancomycin and continued cefepime. Given that this is likely contamination, will stop IV antibiotics, and will continue to monitor Blood cell count within normal limits, also procalcitonin negative. Lactic acid first elevated in the ED, however after IV fluids normalized to 0.9. Likely from dehydration. There are no abrasions, no wounds, no clear source of infection. UA negative. Chest x-ray negative. Patient otherwise denied any fevers, cough, abdominal pain, diarrhea. No clear source infection identified. Medical telemetry -reviewed, continues to be in sinus rhythm DT precautions Alcohol withdrawal precautions protocol, gabapentin, Ativan as needed - no Ativan needed per nursing staff Hypophosphatemia -Replace and monitor -Likely from poor oral intake prior to admission Chronic conditions: chronic systolic heart failure secondary to nonischemic cardiomyopathy (EF 47%, TTE 2019 as per patient), euvolemic to dry hypertension, slight elevated on admission, now in goal Facilitate home beta-jose hyperlipidemia on statin Rx Alcoholic hepatitis ongoing tobacco abuse, Nicotine patch PRN DVT prophylaxis per Lovenox subcu Full code Admission and Anticipated Discharge Date Admission Date: September 11, 2019 Subjective Profound hypophosphatemia, phosphorus replaced. Patient sitting up in bed, eating, in no acute distress. He is inquiring about leaving the hospital tomorrow so he can go to [place] rehab. He says that he feels well, denies any fevers, chills, chest pain, shortness of breath, abdominal pain, nausea, vomiting, tremors, hallucinations. Review of Systems Review of Systems: All systems reviewed & are unremarkable except as noted in HPI & below Constitutional: no fever and no chills Respiratory: no cough and no dyspnea Cardiovascular: no chest pain and no palpitations Gastrointestinal: no abdominal pain, no nausea and no vomiting Physical Exam Physical Exam: GENERAL: Middle-aged obese male, sitting up in the chair, in no acute distress HEENT: Normocephalic, atraumatic, EOMI, PERRL NECK : Supple, short neck, no tenderness CHEST : Normal respiratory effort, CTAB, no wheezing, rhonchi or crackles noted HEART : RRR, no murmurs noted ABDOMEN: Normal bowel sounds, soft, obese, nontender to palpation EXTREMITIES : No LE swelling/tenderness, no sensory loss noted, moves extremities spontaneously and without difficulty SKIN: Normal color, warm, dry NEURO/PSYCH : Alert and oriented x3, no facial asymmetry, speech fluent, moves extremities spontaneously, answers questions appropriately, euthymic affect Results & Data Results & Data ([facility]) Vital Signs (Past 12 Hours) Vital Signs Temp Pulse Pulse Resp BP Pulse Ox 09/13/19 16:57 78 09/13/19 15:37 36.7 C 74 18 125/76 98 09/13/19 11:35 36.9 C 74 18 132/82 97 Laboratory Results 09/13/19 09/13/19 09/13/19 Range/Units 13:30 09:30 06:54 WBC 7.86 (4.8-10.8) K/uL RBC 4.20 L (4.7-6.1) M/uL Hgb 13.9 L (14.0-18.0) g/dL Hct 40.4 L (42-52) % MCV 96.2 (80-100) fL MCH 33.1 (25-34) pg MCHC 34.4 (32-36) g/dL RDW Std Deviation 44.9 (36.4-46.3) fL RDW Coeff of Darya 13.1 (11.5-14.5) % Plt Count 200 (130-400) K/uL MPV 9.8 (7.4-10.4) fL Sodium (136-145) mmol/L Potassium (3.5-5.1) mmol/L Chloride (98-107) mmol/L Carbon Dioxide (21-32) mmol/L Anion Gap (3-11) BUN (7-18) mg/dl Creatinine (0.6-1.4) mg/dl Est Cr Clr Drug Dosing ml/min Est GFR ( Amer) Est GFR (Non-Af Amer) BUN/Creatinine Ratio (10-20) Glucose (70-99) mg/dl Calcium (8.5-10.1) mg/dl Phosphorus (2.5-4.9) mg/dl Magnesium (1.8-2.4) mg/dl Stl C. diff Tox B Gene Negative Cdiff Gene (Neg) Vancomycin Trough 18.5 (See Comment) mcg/ml 09/13/19 Range/Units 06:54 WBC (4.8-10.8) K/uL RBC (4.7-6.1) M/uL Hgb (14.0-18.0) g/dL Hct (42-52) % MCV (80-100) fL MCH (25-34) pg MCHC (32-36) g/dL RDW Std Deviation (36.4-46.3) fL RDW Coeff of Darya (11.5-14.5) % Plt Count (130-400) K/uL MPV (7.4-10.4) fL Sodium 138 (136-145) mmol/L Potassium 3.8 (3.5-5.1) mmol/L Chloride 110 H (98-107) mmol/L Carbon Dioxide 23 (21-32) mmol/L Anion Gap 5.0 (3-11) BUN 9 (7-18) mg/dl Creatinine 0.73 (0.6-1.4) mg/dl Est Cr Clr Drug Dosing 148.0 ml/min Est GFR ( Amer) 127.1 Est GFR (Non-Af Amer) 109.7 BUN/Creatinine Ratio 12.1 (10-20) Glucose 112 H (70-99) mg/dl Calcium 7.6 L (8.5-10.1) mg/dl Phosphorus 1.2 L* (2.5-4.9) mg/dl Magnesium 1.8 (1.8-2.4) mg/dl Stl C. diff Tox B Gene (Neg) Vancomycin Trough (See Comment) mcg/ml Medications Administered Current Inpatient Medications Acetaminophen (Tylenol) 325 mg PO Q6H PRN PRN Reason: Mild Pain Stop: 10/11/19 23:11 Aspirin (Ecotrin Ectab) 81 mg PO DAILY ALEXEY Stop: 10/12/19 08:59 Last Admin: 09/13/19 07:46 Dose: 81 mg Documented by: Atorvastatin Calcium (Lipitor) 20 mg PO HS [facility] Stop: 10/11/19 23:11 Last Admin: 09/12/19 20:17 Dose: 20 mg Documented by: Carvedilol (Coreg) 12.5 mg PO BID [facility] Stop: 10/12/19 08:59 Last Admin: 09/13/19 07:44 Dose: 12.5 mg Documented by: Cyanocobalamin (Vitamin B-12) 1,000 mcg PO DAILY [facility] Stop: 10/12/19 08:59 Last Admin: 09/13/19 07:46 Dose: 1,000 mcg Documented by: Enoxaparin Sodium (Lovenox) [facility] Stop: 10/12/19 08:59 Last Admin: 09/13/19 07:44 Dose: 40 mg Documented by: Folic Acid (Folvite) 1 mg PO QAM [facility] Stop: 10/12/19 08:59 Last Admin: 09/13/19 07:46 Dose: 1 mg Documented by: Gabapentin (Neurontin) 600 mg PO Q12H [facility] Stop: 09/14/19 08:04 Gabapentin (Neurontin) 600 mg PO Q24H [facility] Stop: 09/15/19 08:04 Promethazine HCl 12.5 mg/ (Sodium Chloride) 50.5 mls @ 202 mls/hr IV Q6H PRN PRN Reason: Nausea And Vomiting Stop: 10/11/19 23:11 Last Infusion: 09/12/19 14:26 Dose: Infused Documented by: Lorazepam (Ativan) 1 mg in 2 mls @ 2 mls/min IV UD PRN; Protocol PRN Reason: EtOH Withdrawl AWSS Score 6,7 Stop: 10/11/19 23:11 Last Admin: 09/12/19 20:34 Dose: 2 mls/min Documented by: Lorazepam (Ativan) 2 mg in 4 mls @ 4 mls/min IV UD PRN; Protocol PRN Reason: EtOH Withdrawl AWSS Score 8,9 Stop: 10/11/19 23:11 Lorazepam (Ativan) 3 mg in 6 mls @ 4 mls/min IV ONCE PRN; Protocol PRN Reason: EtOH Withdrawl AWSS Score >=10 Stop: 10/11/19 23:11 Lorazepam (Ativan) 0.25 mg PO HS PRN PRN Reason: Insomnia Stop: 10/11/19 23:11 Last Admin: 09/12/19 00:42 Dose: 0.25 mg Documented by: Multivitamins (Multivitamin Tab) 1 tab PO QAM [facility] Stop: 10/12/19 08:59 Last Admin: 09/13/19 07:46 Dose: 1 tab Documented by: Saccharomyces Boulardii (Florastor) 250 mg PO DAILY [facility] Stop: 10/13/19 08:59 Last Admin: 09/13/19 09:02 Dose: 250 mg Documented by: Sacubitril/Valsartan (Entresto 24/26mg) 1 tab PO BID [facility] Stop: 10/11/19 23:11 Last Admin: 09/13/19 07:46 Dose: 1 tab Documented by: Thiamine HCl (Vitamin B-1) 100 mg PO QAM [facility] Stop: 10/12/19 08:59 Last Admin: 09/13/19 07:46 Dose: 100 mg Documented by:
[2019-09-13] MEDS: ATORVASTATIN 20 MG TAB PO SCH (21:09)
[2019-09-14 06:19] LABS: Hematocrit (blood only) 42.2 % (42-52); Hemoglobin 14.2 g/dL (14.0-18.0); Mean Corpuscular Hemoglobin 32.8 pg (25-34); Mean Corpuscular Hgb Conc 33.6 g/dL (32-36); Mean Corpuscular Volume 97.5 fL (80-100); Mean Platelet Volume 10.4 fL (7.4-10.4); Platelet Count 197 K/uL (130-400); RDW Coefficient of Variation 12.9 % (11.5-14.5); RDW Standard Deviation 46.2 fL (36.4-46.3); Red Blood Count 4.33 M/uL (4.7-6.1); White Blood Count 8.81 K/uL (4.8-10.8)
[2019-09-14 06:56] LABS: Est GFR (African American) 127.1
[2019-09-14 06:57] LABS: BUN Creatinine Ratio 9.8 (10-20); Calcium 7.7 mg/dl (8.5-10.1); Creatinine Clr Calc Pharmacy 146.5 ml/min; Est GFR (Non-African American) 109.7; Magnesium 1.7 mg/dl (1.8-2.4)
[2019-09-14] MEDS ORDERED: MAGNESIUM SULFATE / D5W 1 GM/100 ML BAG IV ONE (07:01)
[2019-09-14 07:11] LABS: Phosphorus 1.7 mg/dl (2.5-4.9)
[2019-09-14] MEDS ORDERED: SODIUM PHOSPHATE 3 MMOL/1 ML INFUSION IV STA (07:29)
[2019-09-14] MEDS: THIAMINE HCL 100 MG TAB PO SCH (07:44)
[2019-09-14] MEDS: SACCHAROMYCES BOULARDII 250 MG CAP PO SCH (07:44)
[2019-09-14] MEDS: FOLIC ACID 1 MG TAB PO SCH (07:44)
[2019-09-14] MEDS: CYANOCOBALAMIN 500 MCG TABLET (VITAMIN B-12) PO SCH (07:44)
[2019-09-14] MEDS: MULTIVITAMIN TAB PO SCH (07:44)
[2019-09-14] MEDS: ASPIRIN 81 MG ECTAB PO SCH (07:44)
[2019-09-14] MEDS: carvediloL 12.5 MG TAB PO SCH (07:44)
[2019-09-14] MEDS: ENOXAPARIN INJ 40 MG/0.4 ML SYR SQ SCH (07:45)
[2019-09-14] MEDS: SACUBITRIL-VALSARTAN 24-26 MG TAB PO SCH (07:45)
[2019-09-14] MEDS: GABAPENTIN 600 MG TAB PO SCH (07:45)
[2019-09-14 07:53] VITALS: O2SAT 95
[2019-09-14] MEDS ORDERED: SODIUM PHOSPHATE 21 MMOL in SODIUM CHLORIDE 0.9% 500 ML IV ONE (08:00)
[2019-09-14 12:03] VITALS: BP 116/72; TEMP 98.1
--- NOTE | 2019-09-14 13:46 | Hospitalist Progress Note ---
Date of Service September 14, 2019 Assessment & Plan (1) Alcohol withdrawal: Low-grade fever likely from alcohol withdrawal No recorded fever since patient in hospital No overt source of bacterial infection identified on admission One of the blood cultures obtained in emergency room came positive for Coag. negative staph (per anil likely contamination) STAT blood cultures reordered and negative, no growth to date. Patient received cefepime in the ED. Gave vancomycin and continued cefepime. Given that this is likely contamination, stopped IV antibiotics yesterday, September 13, 2019, and continued to monitor Blood cell count within normal limits, also procalcitonin negative. Lactic acid first elevated in the ED, however after IV fluids normalized to 0.9. Likely from dehydration. There are no abrasions, no wounds, no clear source of infection. UA negative. Chest x-ray negative. Patient otherwise denied any fevers, cough, abdominal pain, diarrhea. No clear source of infection identified. Medical telemetry -reviewed, continues to be in sinus rhythm DT precautions Alcohol withdrawal precautions protocol, gabapentin, Ativan as needed - no Ativan needed per nursing staff Continue thiamine, folate, multivitamin Hypophosphatemia, hypomagnesemia -Replace and monitor -Likely from IVF, poor oral intake prior to admission -We will prescribe oral supplementation, recommend to repeat electrolytes in 1 week by PCP Chronic conditions: chronic systolic heart failure secondary to nonischemic cardiomyopathy (EF 47%, TTE 2018 as per patient), euvolemic to dry hypertension, slight elevated on admission, now in goal Facilitate home beta-jose hyperlipidemia on statin Rx Alcoholic hepatitis ongoing tobacco abuse, Nicotine patch PRN DVT prophylaxis per Lovenox subcu Full code Admission and Anticipated Discharge Date Admission Date: September 11, 2019 Subjective Patient sitting up in chair, in no acute distress. He is inquiring about leaving the hospital today so he can go to [facility] rehab. He says that he feels well, denies any fevers, chills, chest pain, shortness of breath, abdominal pain, nausea, vomiting, tremors, hallucinations. Discussed that complete abstinence of alcohol is crucial, patient is in agreement. Discussed that some electrolytes were low and would recommend supplementation, and nutritious diet. Patient has been eating well while in the hospital. Review of Systems Review of Systems: All systems reviewed & are unremarkable except as noted in HPI & below Constitutional: no fever and no chills Respiratory: no cough and no dyspnea Cardiovascular: no chest pain and no palpitations Gastrointestinal: no abdominal pain, no nausea and no vomiting Neurologic: no tremor(s) Psychiatric: no hallucinations Physical Exam Physical Exam: GENERAL: Middle-aged obese male, sitting up in the chair, in no acute distress HEENT: Normocephalic, atraumatic, EOMI, PERRL NECK : Supple, short neck, no tenderness CHEST : Normal respiratory effort, CTAB, no wheezing, rhonchi or crackles noted HEART : RRR, no murmurs noted ABDOMEN: Normal bowel sounds, soft, obese, nontender to palpation EXTREMITIES : No LE swelling/tenderness, no sensory loss noted, moves extremities spontaneously and without difficulty SKIN: Normal color, warm, dry NEURO/PSYCH : Alert and oriented x3, no facial asymmetry, speech fluent, moves extremities spontaneously, answers questions appropriately, euthymic affect Results & Data Results & Data ([facility]) Vital Signs (Past 12 Hours) Vital Signs Temp Pulse Pulse Resp BP BP Pulse Ox 09/14/19 12:02 36.7 C 74 18 116/72 95 09/14/19 07:58 66 09/14/19 07:52 37.1 C 73 20 125/82 95 09/14/19 04:03 36.8 C 76 20 127/85 97
--- NOTE | 2019-09-14 13:51 | Discharge Summary ---
Date of Service September 14, 2019 Admission HPI Per Admitting Provider History obtained from patient and records. Medical history significant for chronic systolic heart failure secondary to nonischemic cardiomyopathy (EF 47%, TTE 2019 as per patient), hypertension, hyperlipidemia, ongoing alcohol/tobacco abuse. Patient checked himself in today at [facility] center for alcohol rehab. Upon arrival at the facility, patient noted to have low-grade fever of 100.2, noted to be tachycardic, cardiac rate 140s. Patient denies chest pain, S OB, cough, abdominal pain, diarrhea, dysuria. Some palpitations noted. At the ER, patient given Cefepime for possible sepsis. Medical History as above Surgical History : None Family History : Unknown as patient is adopted Personal/Social history : Half pack daily, alcohol abuse, railroad work Admission Exam Per Admitting Provider GENERAL: Comfortable, pleasant, obese, no respiratory distress SKIN: Normal color, warm HEENT: [place] palpebral conjunctivae, no ptosis, dry buccal mucosa NECK : Supple, short neck, no tenderness CHEST : Decreased breath sounds, expiratory wheezes that clear on coughing, no tenderness HEART : Tachycardic, no obvious murmurs ABDOMEN: Some distention, nontender EXTREMITIES : No LE swelling/tenderness, no other conspicuous deformities noted NEUROLOGIC : Coherent, no facial asymmetry, no other gross focality Principal Diagnosis Alcohol intoxication/withdrawal Discharge Exam GENERAL: Middle-aged obese male, sitting up in the chair, in no acute distress HEENT: Normocephalic, atraumatic, EOMI, PERRL NECK : Supple, short neck, no tenderness CHEST : Normal respiratory effort, CTAB, no wheezing, rhonchi or crackles noted HEART : RRR, no murmurs noted ABDOMEN: Normal bowel sounds, soft, obese, nontender to palpation EXTREMITIES : No LE swelling/tenderness, no sensory loss noted, moves extremities spontaneously and without difficulty SKIN: Normal color, warm, dry NEURO/PSYCH : Alert and oriented x3, no facial asymmetry, speech fluent, moves extremities spontaneously, answers questions appropriately, euthymic affect Discharge Data Allergies Allergy/AdvReac Type Severity Reaction Status Date / Time No Known Allergies Allergy Verified 09/11/19 16:51 Consultations 09/11/19 18:58 ED Decision to Admit Stat Hospital Course (1) Alcohol withdrawal: Low-grade fever likely from alcohol withdrawal No recorded fever since patient in hospital No overt source of bacterial infection identified on admission One of the blood cultures obtained in emergency room came positive for Coag. negative staph (per anil likely contamination) STAT blood cultures reordered and negative, no growth to date. Patient received cefepime in the ED. Gave vancomycin and continued cefepime. Given that this is likely contamination, stopped IV antibiotics yesterday, September 13, 2019, and continued to monitor Blood cell count within normal limits, also procalcitonin negative. Lactic acid first elevated in the ED, however after IV fluids normalized to 0.9. Likely from dehydration. There are no abrasions, no wounds, no clear source of infection. UA negative. Chest x-ray negative. Patient otherwise denied any fevers, cough, abdominal pain, diarrhea. No clear source of infection identified. Medical telemetry -reviewed, continues to be in sinus rhythm DT precautions Alcohol withdrawal precautions protocol, gabapentin, Ativan as needed - no Ativan needed per nursing staff Continue thiamine, folate, multivitamin Hypophosphatemia, hypomagnesemia -Replace and monitor -Likely from IVF, poor oral intake prior to admission -We will prescribe oral supplementation, recommend to repeat electrolytes in 1 week by PCP Chronic conditions: chronic systolic heart failure secondary to nonischemic cardiomyopathy (EF 47%, TTE 2019 as per patient), euvolemic to dry hypertension, slight elevated on admission, now in goal Facilitate home beta-jose hyperlipidemia on statin Rx Alcoholic hepatitis ongoing tobacco abuse, Nicotine patch PRN Disposition: Plan is to go back to rehab to [facility] Total Time Total Time Spent Total Time Spent (In Minutes): 40 Total Time Includes: Examination of the Patient, Discharge Planning and Medication Reconciliation Discharge Plan Discharge Items Patient Disposition: Drug & Alcohol Rehab Reason For Visit: ALCOHOL WITHDRAWAL Discharge Diagnosis: Alcohol intoxication/withdrawal Activity: Per Instructions section Non-emergency contact: Primary Care Provider Call non-emergency contact if: you have any medication questions and your symptoms worsen Follow-up/Referrals: PCP,NO [Primary Care Provider] - Diet: Heart Healthy Addtl Attending Provider Instructions: Complete abstinence from alcohol is crucial. Take vitamin supplements, thiamine, folic acid, multivitamin. In addition, some of your electrolytes were low when you were in the hospital. Supplements for phosphorus and magnesium were sent to the [facility] pharmacy. Have blood work done and electrolytes rechecked in 1 week by your primary care doctor - check BMP, phosphorus and magnesium level. Pending Studies at Discharge: Yes Studies:: Blood cultures-no growth to date Stand-Alone Forms: My [facility] Skilled Items Patient informed of condition?: Yes DNR: No Discharge Level of Care: Other Communicable Disease: No Discharge Prognosis: Stable Lines: None Urinary Catheter: No Medications and DC Order Prescriptions: New Phospha 250 Neutral 250 mg Tablet 1 tab PO BID 7 Days Qty: 14 RF: 0 Saccharomyces boulardii [Florastor] 250 mg Capsule 250 mg PO DAILY 7 Days Qty: 7 RF: 0 folic acid 1 mg Tablet 1 mg PO QAM 30 Days Qty: 30 RF: 0 multivitamin [Daily-Dong] Tablet 1 tab PO QAM 30 Days Qty: 30 RF: 0 thiamine HCl (vitamin B1) [Vitamin B-1] 100 mg Tablet 100 mg PO QAM 30 Days Qty: 30 RF: 0 magnesium oxide 400 mg magnesium capsule 400 mg PO DAILY Qty: 7 RF: 0 Continued atorvastatin 20 mg Tablet 20 mg PO HS RF: 0 carvedilol [Coreg] 12.5 mg Tablet 12.5 mg PO BID RF: 0 cyanocobalamin (vitamin B-12) [Vitamin B-12] 1,000 mcg Tablet 1,000 mcg PO DAILY RF: 0 aspirin 81 mg Tablet,Delayed Release (Dr/Ec) 81 mg PO DAILY RF: 0 spironolactone 25 mg Tablet 12.5 mg PO QAM RF: 0 Entresto 24-26 mg Tablet 1 tab PO BID RF: 0 Discharge Orders: Discharge Order (Routine); Ordered 09/14/19 Ordered By: David Duvall Admission Data Admit Date/Time: 09/11/19 20:01 Attending Provider: David Duvall Admit Provider: Marcos Groves Primary Care Provider: PCP,NO Other Providers: Marcos Groves
[2019-09-14 13:58] VITALS: PULSE 80
[2019-09-14] MEDS ORDERED: POT PHOSPHATE MONOBASIC W/ SOD TAB PO SCH (21:00)
[2019-09-15] MEDS ORDERED: GABAPENTIN 600 MG TAB PO SCH (08:03)
== END 2019-09-14 14:15 | disposition alcohol treatment (31) | DRG 897 ==
LOC: ED 15:30 → 2N 20:01
DX: E83.39 Other disorders of phosphorus metabolism; F17.210 Nicotine dependence, cigarettes, uncomplicated; E78.5 Hyperlipidemia, unspecified; I50.22 Chronic systolic (congestive) heart failure; E83.42 Hypomagnesemia; Z79.899 Other long term (current) drug therapy; I10 Essential (primary) hypertension; I42.8 Other cardiomyopathies; Z79.82 Long term (current) use of aspirin; F10.239 Alcohol dependence with withdrawal, unspecified; K70.10 Alcoholic hepatitis without ascites